=== PATIENT | male | born 1960 | race Caucasian/White ===

== ENCOUNTER 2020-04-02 09:13 | Day surgery (SDC) | payer BC ==
[2020-03-25 13:46] VITALS: BMI 23.7
[2020-04-02] MEDS ORDERED: PROPOFOL 20 ML ONE (09:32)
[2020-04-02] MEDS ORDERED: MIDAZOLAM HCL 2 MG/2 ML SINGLE DOSE VIAL ONE (09:32)
[2020-04-02] MEDS ORDERED: ONDANSETRON 4 MG/2 ML VIAL ONE (10:23)
[2020-04-02] MEDS ORDERED: LIDOCAINE HCL/PF 2% SDV 5ML VIAL ONE (10:23)
[2020-04-02] MEDS ORDERED: DEXAMETHASONE SOD PHOSPHATE 4 MG/1 ML VIAL ONE (10:23)
[2020-04-02] MEDS ORDERED: KETOROLAC TROMETHAMINE 30 MG/1 ML VIAL ONE (10:23)
[2020-04-02] MEDS ORDERED: BUPIVACAINE HCL/PF 0.25% (2.5MG/ML) 10 ML VIAL IJ ONE (10:38)
--- NOTE | 2020-04-02 10:40 | OP ---
DATE OF OPERATION: 04/02/2020 PREOPERATIVE DIAGNOSES: 1. Right carpal tunnel syndrome. 2. Right index trigger finger. POSTOPERATIVE DIAGNOSES: 1. Right carpal tunnel syndrome. 2. Right index trigger finger. OPERATIVE PROCEDURE: 1. Right endoscopic carpal tunnel release. 2. Right index trigger finger release. SURGEON: Jovon Lind MD ANESTHESIA: General. COMPLICATIONS: None. ESTIMATED BLOOD LOSS: Minimal. INDICATIONS FOR PROCEDURE: The patient is a 59-year-old male with the above finding indicated for operative treatment. Risks, benefits and alternatives were discussed with him at length and proper informed consent was obtained. PROCEDURE: After proper identification of the patient and correct operative site, patient was brought to the operating room and placed supine on the operating table. All prominences were well padded. General anesthesia was given. Right upper extremity was prepped and draped in the usual sterile fashion. Well-padded tourniquet was placed over the sterile prep. Esmarch bandage was used to exsanguinate the right upper extremity. Tourniquet was inflated to 250 mmHg. A transverse incision was made in the proximal wrist crease ulnar to the palmaris longus tendon. Incision was carried sharply through the skin with blunt and sharp dissection through the subcutaneous tissues. Antebrachial fascial was divided and the carpal tunnel was entered. Soft tissue was freed from the undersurface of the transverse carpal ligament with an elevator. Hamate finder dilator was used to prepare the canal and the Micro[employer]ire endoscopic carpal tunnel release system was inserted to the distal edge of the transverse carpal ligament, confirmed palpably as well as visually. Excellent visualization was achieved throughout the procedure and at no time was any soft tissue allowed to interpose between the blade and the undersurface of the transverse carpal ligament. The blade was deployed and the transverse carpal ligament was divided. Using the direct mini-open approach, the distal 4 cm of the antebrachial fascia were divided longitudinally in order to complete a release of the median nerve at the wrist. The wound was repaired with 4-0 Monocryl sutures. Steri-Strips were placed. Second incision was made over the A1 nitesh of the index finger. Incision was carried sharply through skin with blunt dissection through the subcutaneous tissues. The A1 nitesh was identified and divided longitudinally. The wound was irrigated and repaired with 5-0 fast-absorbing plain gut suture. Sterile dressings were applied. Patient was brought to the recovery room in stable condition. He tolerated the procedure well. Chayo [id number]
[2020-04-02] MEDS ORDERED: oxyCODONE HCL 5 MG TABLET PO PRN ×2 (11:16)
[2020-04-02] MEDS ORDERED: PROMETHAZINE HCL 25 MG/1 ML VIAL IVPUSH PRN (11:16)
[2020-04-02] MEDS ORDERED: ONDANSETRON 4 MG/2 ML VIAL IVPUSH PRN (11:16)
[2020-04-02 11:42] VITALS: TEMP 97.7
[2020-04-02 12:07] VITALS: BP 114/63; PULSE 58
== END 2020-04-02 12:10 | disposition home or self-care (01) ==
LOC: FASU 09:13
PROVIDERS: ATTEND Orthopaedic Surgery Hand Surgery
PROC: 0LN70ZZ Release Right Hand Tendon, Open Approach (ICD-10-PCS; 2020-04-02)
PROC: 01N54ZZ Release Median Nerve, Percutaneous Endoscopic Approach (ICD-10-PCS; principal; 2020-04-02 10:21)
DX: G56.01 Carpal tunnel syndrome, right upper limb (principal); M65.321 Trigger finger, right index finger
CPT/HCPCS: 94760

== ENCOUNTER 2021-07-23 09:24 | Day surgery (SDC) | payer BC ==
[2021-07-20 14:51] VITALS: BMI 23.7
[2021-07-23] MEDS ORDERED: MIDAZOLAM HCL 2 MG/2 ML SINGLE DOSE VIAL ONE ×2 (09:58→11:44)
[2021-07-23] MEDS ORDERED: ROPIVACAINE HCL/PF 100 MG/20 ML VIAL ONE (09:58)
[2021-07-23] MEDS ORDERED: PROPOFOL 20 ML ONE ×2 (10:53)
[2021-07-23] MEDS ORDERED: KETOROLAC TROMETHAMINE 30 MG/1 ML VIAL ONE (11:06)
[2021-07-23] MEDS ORDERED: DEXAMETHASONE SOD PHOSPHATE 4 MG/1 ML VIAL ONE (11:06)
[2021-07-23] MEDS ORDERED: ceFAZolin SODIUM 1 GM VIAL ONE (11:06)
[2021-07-23] MEDS ORDERED: ONDANSETRON 4 MG/2 ML VIAL ONE (11:06)
[2021-07-23] MEDS ORDERED: TRANEXAMIC ACID 1000 MG/10 ML VIAL ONE (11:22)
[2021-07-23] MEDS ORDERED: EPINEPHrine 1:1,000 1 MG/1 ML - 30ML VIAL (INJECTION) ONE (13:04)
[2021-07-23] MEDS ORDERED: PROMETHAZINE HCL 25 MG/1 ML VIAL IVPUSH PRN (13:43)
[2021-07-23] MEDS ORDERED: ONDANSETRON 4 MG/2 ML VIAL IVPUSH PRN (13:43)
[2021-07-23] MEDS ORDERED: oxyCODONE HCL 5 MG TABLET PO PRN ×2 (13:43)
[2021-07-23] MEDS: ACETAMINOPHEN 1000 MG/100 ML BAG IVPB ONE ×2 (13:44→13:54)
[2021-07-23 14:51] VITALS: BP 134/84; PULSE 80; TEMP 97.8
== END 2021-07-23 14:45 | disposition home or self-care (01) ==
LOC: FASU 09:24
PROVIDERS: ATTEND Orthopaedic Surgery Sports Medicine
PROC: 0RBK4ZZ Excision of Left Shoulder Joint, Percutaneous Endoscopic Approach (ICD-10-PCS; 2021-07-23)
PROC: 0PBB4ZZ Excision of Left Clavicle, Percutaneous Endoscopic Approach (ICD-10-PCS; 2021-07-23)
PROC: 0LQ24ZZ Repair Left Shoulder Tendon, Percutaneous Endoscopic Approach (ICD-10-PCS; principal; 2021-07-23 11:21)
PROC: 0RNK4ZZ Release Left Shoulder Joint, Percutaneous Endoscopic Approach (ICD-10-PCS; 2021-07-23 11:21)
DX: M75.102 Unspecified rotator cuff tear or rupture of left shoulder, not specified as traumatic (principal); M24.112 Other articular cartilage disorders, left shoulder; S43.432A Superior glenoid labrum lesion of left shoulder, initial encounter; X58.XXXA Exposure to other specified factors, initial encounter; Y93.9 Activity, unspecified; Y92.9 Unspecified place or not applicable; M19.012 Primary osteoarthritis, left shoulder
CPT/HCPCS: 94760; J0131